=== PATIENT | male | born 1985 | race Caucasian/White ===

== ENCOUNTER 2016-10-24 06:15 | Emergency (ER) | payer OTHER ==
[~2016-10-24] VITALS: Ht 175.3 cm; Wt 113.8 kg
[~2016-10-24 06:15] MED LIST: ALBUTEROL SULF8.5 GM IH; AMLODIPINE BESYL5 MG PO; AMOXIL875 MG PO; ATORVASTATIN CA10 MG PO; BLOOD PRESSURE; CARVEDILOL12.5 MG PO; CLEOCIN300 MG PO; COREG25 M1 PO; CRESTOR; CRESTOR10 MG PO; DIABETIC; ELIQUIS2.5 MG PO; ELIQUIS5 MG PO; ENDOCET 5-3251 EACH PO; ERGOCALCIF50000 UNIT PO; FUROSEMIDE20 MG PO; HYCODAN SYRUP480 ML PO; JANUMET 50/51 TABLET PO; LANTUS (UNITS)1 UNIT SQ; LANTUS 10100 UNITS/ SC; LANTUS 3 M100 UNITS/ SC; LANTUS100 UNIT/2 SQ; LASIX40 MG PO; LEVEMIR100 UNIT/2 SC; LISINOPRIL20 MG PO; LISINOPRIL40 MG PO; LORCET 5-325 M1 EACH PO; METFORMIN; METFORMIN HCL1000 MG PO; NAPROSYN500 MG PO; NOVOLOG 10100 UNITS/ SC; OMEPRAZOLE40 M1 PO; PREDNISONE20 MG PO; TARKA PO
[2016-10-24] MEDS ORDERED: PEN-VEE K,VEET500 MG PO (06:55)
[2016-10-24] MEDS ORDERED: ULTRAM50 MG PO (06:55)
[2016-10-24 07:15] VITALS: BP 00/00
== END 2016-10-24 07:15 | disposition home or self-care (01) ==
LOC: EME 06:15
DX: K02.9 Dental caries, unspecified (principal); E11.9 Type 2 diabetes mellitus without complications; N18.9 Chronic kidney disease, unspecified; E78.5 Hyperlipidemia, unspecified; F17.200 Nicotine dependence, unspecified, uncomplicated
CPT/HCPCS: 99281; 99284

== ENCOUNTER 2016-12-23 21:09 | Inpatient (IN) | payer OTHER ==
[~2016-12-23] VITALS: Ht 175.3 cm; Wt 117.3 kg
[~2016-12-23 21:09] MED LIST changes: +PEN-VEE K,VEET500 MG PO; +ULTRAM50 MG PO
[2016-12-23 22:19] LABS: EOSINOPHIL (%) 2.3 % (0-5); EOSINOPHIL COUNT 0.2 K/uL (0-0.3); HEMATOCRIT 36.8 % (38.0-50.0); IMMATURE GRANULOCYTE (%) 0.4 % (0.0-0.7); INSTRUMENT ABS NEUTROPHIL CT 6.4 K/uL; LYMPHOCYTE COUNT 0.7 K/uL (1.0-2.8); MCH 28.8 PG (29.0-34.0); MCHC 33.2 G/DL (30.0-36.0); MEAN PLAT.VOLUME 9.9 uM^3 (9.0-12.4); MONOCYTE (%) 10.4 % (3-12); MONOCYTE COUNT 0.9 K/uL (0-0.8); NEUTROPHIL (%) 78.2 % (45-76); NEUTROPHIL COUNT 6.4 K/uL (1.8-6.4); PLATELET COUNT 207 K/uL (156-360); RBC DIS.WIDTH-SD 41.4 % (39-53); RED BLOOD COUNT 4.23 M/uL (4.00-5.50); WHITE BLOOD COUNT 8.2 K/uL (4.1-10.2)
[2016-12-23 22:30] LABS: CHLORIDE 109 mEq/L (99-109); POTASSIUM 5.2 mEq/L (3.7-5.4); SODIUM 139 mEq/L (136-147)
[2016-12-23 22:32] LABS: GLUCOSE 131 mg/dL (70-99)
[2016-12-23 22:33] LABS: ANION GAP 9 MEQ/L (2-14)
[2016-12-23 22:36] LABS: GFR ESTIMATE (CALCULATED) 35 mL/min/; UREA NITROGEN (BUN) 47 mg/dL (9-23)
[2016-12-24] MEDS ORDERED: ATORVASTATIN CA10 MG PO (00:29)
[2016-12-24] MEDS ORDERED: LISINOPRIL40 MG PO (00:29)
[2016-12-24] MEDS ORDERED: LANTUS 3 M100 UNITS1 SC (00:31)
[2016-12-24] MEDS ORDERED: NOVOLOG PE100 UNITS/ SC (00:32)
[2016-12-24 04:25] VITALS: BP 143/81
[2016-12-24 06:54] LABS: POINT-OF-CARE METER ID UU14188577
[2016-12-24 09:00] VITALS: BP 163/86
[2016-12-24 09:06] LABS: MCH 28.3 PG (29.0-34.0); MCHC 32.4 G/DL (30.0-36.0); MCV 87.3 FL (86-99); MEAN PLAT.VOLUME 10.5 uM^3 (9.0-12.4); PLATELET COUNT 178 K/uL (156-360); RBC DIS.WIDTH-CV 12.9 % (11.8-14.6); RBC DIS.WIDTH-SD 41.1 % (39-53); RED BLOOD COUNT 3.78 M/uL (4.00-5.50); WHITE BLOOD COUNT 6.4 K/uL (4.1-10.2)
[2016-12-24 09:24] LABS: ANION GAP 6 MEQ/L (2-14); CHLORIDE 108 MEQ/L (99-109); GFR ESTIMATE (CALCULATED) 37 mL/min/; GLUCOSE 135 mg/dL (70-99); POTASSIUM 4.9 MEQ/L (3.7-5.4); SAMPLE HEMOLYSIS CHECK 0; SAMPLE ICTERIC CHECK 0; SAMPLE LIPEMIA CHECK 0; SODIUM 138 MEQ/L (136-147); UREA NITROGEN (BUN) 44 mg/dL (9-23)
[2016-12-24 12:24] LABS: POINT-OF-CARE METER ID UU14188577
[2016-12-24 16:46] VITALS: BP 157/90
[2016-12-24 19:52] VITALS: BP 148/82
[2016-12-24 23:39] VITALS: BP 134/74
[2016-12-25 04:04] LABS: POINT-OF-CARE METER ID UU14188577
[2016-12-25 04:58] LABS: HEMATOCRIT 34.8 % (38.0-50.0); MCHC 31.9 G/DL (30.0-36.0); MCV 87.9 FL (86-99); MEAN PLAT.VOLUME 10.7 uM^3 (9.0-12.4); PLATELET COUNT 209 K/uL (156-360); RBC DIS.WIDTH-CV 12.6 % (11.8-14.6); RBC DIS.WIDTH-SD 40.8 % (39-53); RED BLOOD COUNT 3.96 M/uL (4.00-5.50); WHITE BLOOD COUNT 5.8 K/uL (4.1-10.2)
[2016-12-25 05:14] LABS: CHLORIDE 112 mEq/L (99-109); POTASSIUM 4.7 mEq/L (3.7-5.4); SODIUM 141 mEq/L (136-147)
[2016-12-25 05:17] LABS: ANION GAP 8 MEQ/L (2-14)
[2016-12-25 05:18] LABS: TOTAL BILIRUBIN 0.2 mg/dL (0.0-1.0)
[2016-12-25 05:19] LABS: ALKALINE PHOSPHATASE 55 IU/L (3-129)
[2016-12-25 05:21] LABS: UREA NITROGEN (BUN) 45 mg/dL (9-23)
[2016-12-25 05:25] LABS: GLUCOSE 69 mg/dL (70-99)
[2016-12-25 05:45] LABS: GFR ESTIMATE (CALCULATED) 37 mL/min/
[2016-12-25 07:07] VITALS: BP 152/84
[2016-12-25 11:10] VITALS: BP 157/85
[2016-12-25 12:03] LABS: POINT-OF-CARE METER ID UU14188577
[2016-12-25 14:20] LABS: C-REACTIVE PROTEIN 69.2 MG/L (0-10); PREALBUMIN 20.4 mg/dL (10-40)
[2016-12-25 15:51] VITALS: BP 175/89
[2016-12-25 21:00] LABS: ADD MIUA? YES; BILIRUBIN NEGATIVE; BLOOD SMALL; COLOR YELLOW ((YELLOW)); GLUCOSE (STRIP) 150; KETONES NEGATIVE; LEUKOCYTES NEGATIVE; NITRITE NEGATIVE; PROTEIN (STRIP) >=500; SPECIFIC GRAVITY 1.013 (1.000-1.030); UROBILINOGEN 0.2 MG/DL (0.2-1.0)
[2016-12-25 21:21] LABS: BACTERIA NONE SEEN /HPF; EPITHELIAL CELLS RARE /HPF; HYALINE CASTS 0-5 /LPF; MUCUS TRACE /LPF; RED BLOOD CELLS 15-20 /HPF (0-5); WHITE BLOOD CELLS 0-5 /HPF (0-5)
[2016-12-25 22:16] VITALS: BP 169/86
[2016-12-25 23:56] VITALS: BP 140/84
[2016-12-26 05:24] LABS: HEMATOCRIT 31.5 % (38.0-50.0); MCH 28.5 PG (29.0-34.0); MCV 86.3 FL (86-99); MEAN PLAT.VOLUME 10.8 uM^3 (9.0-12.4); PLATELET COUNT 186 K/uL (156-360); RBC DIS.WIDTH-CV 12.7 % (11.8-14.6); RED BLOOD COUNT 3.65 M/uL (4.00-5.50); WHITE BLOOD COUNT 6.9 K/uL (4.1-10.2)
[2016-12-26 05:58] LABS: ANION GAP 8 MEQ/L (2-14); CHLORIDE 112 MEQ/L (99-109); GFR ESTIMATE (CALCULATED) 37 mL/min/; GLUCOSE 64 mg/dL (70-99); POTASSIUM 4.8 MEQ/L (3.7-5.4); SAMPLE HEMOLYSIS CHECK 0; SAMPLE ICTERIC CHECK 0; SAMPLE LIPEMIA CHECK 0; SODIUM 142 MEQ/L (136-147); UREA NITROGEN (BUN) 41 mg/dL (9-23)
[2016-12-26 07:57] VITALS: BP 152/84
[2016-12-26 16:29] VITALS: BP 165/83
[2016-12-27 00:47] VITALS: BP 153/77
[2016-12-27 07:59] VITALS: BP 158/96
[2016-12-27 11:37] LABS: POINT-OF-CARE METER ID UU14188577
[2016-12-27] MEDS ORDERED: SILVER NITRATE1 EACH TP (12:18)
[2016-12-27 15:34] VITALS: BP 159/85
== END 2016-12-27 16:28 | disposition home health service (06) | DRG 982 ==
LOC: EME 21:09 → 3EAST 12-24 01:44 → EDOF 12-24 01:44 → 3EAST 12-24 03:34
PROVIDERS: Hospitalist; Internal Medicine; Physician Assistant; Surgery Plastic and Reconstructive Surgery
PROC: 0LBV0ZZ Excision of Right Foot Tendon, Open Approach (ICD-10-PCS; principal; 2016-12-26)
DX: E11.621 Type 2 diabetes mellitus with foot ulcer (principal); L97.419 Non-pressure chronic ulcer of right heel and midfoot with unspecified severity; L03.115 Cellulitis of right lower limb; L02.611 Cutaneous abscess of right foot; E11.69 Type 2 diabetes mellitus with other specified complication; E11.42 Type 2 diabetes mellitus with diabetic polyneuropathy; M86.9 Osteomyelitis, unspecified; N17.9 Acute kidney failure, unspecified; E11.21 Type 2 diabetes mellitus with diabetic nephropathy; E11.22 Type 2 diabetes mellitus with diabetic chronic kidney disease; N18.3 Chronic kidney disease, stage 3 (moderate); E11.65 Type 2 diabetes mellitus with hyperglycemia; E11.319 Type 2 diabetes mellitus with unspecified diabetic retinopathy without macular edema; I10 Essential (primary) hypertension; I25.10 Atherosclerotic heart disease of native coronary artery without angina pectoris; E78.5 Hyperlipidemia, unspecified; E55.9 Vitamin D deficiency, unspecified; F17.210 Nicotine dependence, cigarettes, uncomplicated; E66.9 Obesity, unspecified; Z88.1 Allergy status to other antibiotic agents; Z79.4 Long term (current) use of insulin; Z68.38 Body mass index [BMI] 38.0-38.9, adult; I25.2 Old myocardial infarction
CPT/HCPCS: 73630; 73700; 73720; 76881; 76937; 80048; 80053; 81003; 82948; 83605; 84134; 85025; 85027; 85651; 86140; 87040; 87070; 87075; 87076; 87086; 87205; 99281; 99285; A6260; J0690; J1644; J1815; J2270; J2543; J7030

== ENCOUNTER 2017-01-17 07:26 | Day surgery (SDC) | payer OTHER ==
[~2017-01-17] VITALS: Ht 175.3 cm; Wt 121.5 kg
[~2017-01-17 07:26] MED LIST changes: +CEFAZOLIN-2 GM/50 ML IV; +FLAGYL500 MG PO; +LANTUS 3 M100 UNITS1 SC; +NOVOLOG PE100 UNITS/ SC; +SILVER NITRATE1 EACH TP
[2017-01-17 08:54] LABS: POINT-OF-CARE METER ID UU14174212
[2017-01-17 09:05] LABS: CHLORIDE 111 mEq/L (99-109); POTASSIUM 4.9 mEq/L (3.7-5.4); SODIUM 142 mEq/L (136-147)
[2017-01-17 09:07] LABS: GLUCOSE 113 mg/dL (70-99)
[2017-01-17 09:08] LABS: ANION GAP 8 MEQ/L (2-14)
[2017-01-17 09:09] VITALS: BP 123/60
[2017-01-17 09:11] LABS: GFR ESTIMATE (CALCULATED) 44 mL/min/; UREA NITROGEN (BUN) 44 mg/dL (9-23)
[2017-01-17 13:36] LABS: POINT-OF-CARE METER ID UU13113675
[2017-01-17] MEDS ORDERED: NORCO 5/3251 TABLET PO (13:42)
[2017-01-17 14:35] VITALS: BP 159/101
[2017-01-17 15:35] VITALS: BP 153/96
== END 2017-01-17 15:35 | disposition home or self-care (01) ==
LOC: SDC 07:26
PROVIDERS: Surgery
PROC: 0QBN0ZZ Excision of Right Metatarsal, Open Approach (ICD-10-PCS; principal; 2017-01-17)
DX: M86.671 Other chronic osteomyelitis, right ankle and foot (principal); N28.9 Disorder of kidney and ureter, unspecified; E11.9 Type 2 diabetes mellitus without complications; I10 Essential (primary) hypertension; E78.4 Other hyperlipidemia; Z79.4 Long term (current) use of insulin; E66.9 Obesity, unspecified; Z68.39 Body mass index [BMI] 39.0-39.9, adult; F17.210 Nicotine dependence, cigarettes, uncomplicated; Z86.73 Personal history of transient ischemic attack (TIA), and cerebral infarction without residual deficits; Z83.3 Family history of diabetes mellitus
CPT/HCPCS: 80048; 82948; 87070; 87075; 87205; 88305; 88311; 93005; J2250; J2405; J3010; S0020

== ENCOUNTER 2017-02-06 15:34 | Inpatient (IN) | payer OTHER ==
[~2017-02-06] VITALS: Ht 175.3 cm; Wt 121.1 kg
[~2017-02-06 15:34] MED LIST changes: +NORCO 5/3251 TABLET PO
[2017-02-06 16:30] LABS: POINT-OF-CARE METER ID UU13113778
[2017-02-06 16:33] LABS: EOSINOPHIL (%) 0.6 % (0-5); EOSINOPHIL COUNT 0.1 K/uL (0-0.3); HEMATOCRIT 25.2 % (38.0-50.0); IMMATURE GRANULOCYTE (%) 1.1 % (0.0-0.7); IMMATURE GRANULOCYTE COUNT 0.2 K/uL; LYMPHOCYTE COUNT 0.5 K/uL (1.0-2.8); MCH 28.1 PG (29.0-34.0); MCHC 31.7 G/DL (30.0-36.0); MCV 88.4 FL (86-99); MEAN PLAT.VOLUME 9.6 uM^3 (9.0-12.4); MONOCYTE (%) 6.7 % (3-12); MONOCYTE COUNT 1.1 K/uL (0-0.8); NEUTROPHIL (%) 88.6 % (45-76); PLATELET COUNT 433 K/uL (156-360); RBC DIS.WIDTH-CV 13.8 % (11.8-14.6); RBC DIS.WIDTH-SD 44.6 % (39-53); RED BLOOD COUNT 2.85 M/uL (4.00-5.50); WHITE BLOOD COUNT 16.9 K/uL (4.1-10.2)
[2017-02-06 16:44] LABS: CHLORIDE 106 mEq/L (99-109); POTASSIUM 4.3 mEq/L (3.7-5.4); SODIUM 135 mEq/L (136-147)
[2017-02-06 16:46] LABS: GLUCOSE 110 mg/dL (70-99)
[2017-02-06 16:47] LABS: ANION GAP 14 MEQ/L (2-14)
[2017-02-06 16:50] LABS: GFR ESTIMATE (CALCULATED) 16 mL/min/; UREA NITROGEN (BUN) 94 mg/dL (9-23)
[2017-02-06] MEDS ORDERED: CARVEDILOL25 MG PO (18:23)
[2017-02-06] MEDS ORDERED: FUROSEMIDE80 MG PO (18:24)
[2017-02-06] MEDS ORDERED: LANTUS 3 M100 UNITS1 SC (18:25)
[2017-02-06] MEDS ORDERED: VENTOLIN HFA18 GM IH (18:25)
[2017-02-06] MEDS ORDERED: DOXYCYCLINE MO100 MG PO (18:26)
[2017-02-06 19:31] LABS: TOTAL BILIRUBIN 0.2 mg/dL (0.0-1.0)
[2017-02-06 19:32] LABS: ALKALINE PHOSPHATASE 688 IU/L (3-129)
[2017-02-06 19:34] LABS: DIRECT BILIRUBIN 0.2 mg/dL (0.0-0.3)
[2017-02-06 19:35] LABS: URIC ACID 10.4 mg/dL (3.1-9.2)
[2017-02-06 20:28] VITALS: BP 107/55
[2017-02-06 22:03] LABS: POINT-OF-CARE METER ID UU13113725
[2017-02-07] VITALS (8 sets, daily range): BP systolic 107–133; BP diastolic 52–63
[2017-02-07 06:22] LABS: POINT-OF-CARE METER ID UU13113725
[2017-02-07 07:12] LABS: HEMATOCRIT 23.5 % (38.0-50.0); MCH 28.7 PG (29.0-34.0); MCHC 31.9 G/DL (30.0-36.0); MEAN PLAT.VOLUME 10.3 uM^3 (9.0-12.4); PLATELET COUNT 421 K/uL (156-360); RBC DIS.WIDTH-CV 14.1 % (11.8-14.6); RBC DIS.WIDTH-SD 46.3 % (39-53); RED BLOOD COUNT 2.61 M/uL (4.00-5.50); WHITE BLOOD COUNT 15.9 K/uL (4.1-10.2)
[2017-02-07 07:44] LABS: Estimated Average Glucose 160 mg/dL (70-123); HEMOGLOBIN A1c (GLYCOHEMOGLOB) 7.2 % HGB (Below 5.7)
[2017-02-07 07:47] LABS: ALKALINE PHOSPHATASE 732 IU/L (3-129); ANION GAP 14 MEQ/L (2-14); CHLORIDE 107 MEQ/L (99-109); GFR ESTIMATE (CALCULATED) 16 mL/min/; GLUCOSE 61 mg/dL (70-99); POTASSIUM 4.5 MEQ/L (3.7-5.4); SAMPLE HEMOLYSIS CHECK 0; SAMPLE ICTERIC CHECK 0; SAMPLE LIPEMIA CHECK 0; SODIUM 134 MEQ/L (136-147); TOTAL BILIRUBIN 0.2 MG/DL (0.0-1.0); UREA NITROGEN (BUN) 93 mg/dL (9-23)
[2017-02-07 09:01] LABS: ADD MIUA? YES; BILIRUBIN NEGATIVE; BLOOD MODERATE; COLOR YELLOW ((YELLOW)); GLUCOSE (STRIP) 50; KETONES NEGATIVE; LEUKOCYTES NEGATIVE; NITRITE NEGATIVE; PROTEIN (STRIP) 100; SPECIFIC GRAVITY 1.015 (1.000-1.030); UROBILINOGEN 0.2 MG/DL (0.2-1.0)
[2017-02-07 09:20] LABS: POINT-OF-CARE METER ID UU13113725
[2017-02-07 09:22] LABS: BACTERIA RARE /HPF; BUDDING YEAST 1+; EPITHELIAL CELLS NONE SEEN /HPF; GRANULAR CASTS 0-5 /LPF; MUCUS NONE SEEN /LPF; RED BLOOD CELLS 0-5 /HPF (0-5); WHITE BLOOD CELLS 0-5 /HPF (0-5)
[2017-02-07 09:49] LABS: C DIFF TOXIN NEGATIVE (NEGATIVE)
[2017-02-07 10:01] LABS: PROBE CHECK PASS; SPECIMEN PROCESSING CONTROL PASS
[2017-02-07 10:31] LABS: IRON 11 MCG/DL (35-150); URIC ACID 9.9 mg/dL (3.1-9.2)
[2017-02-07 12:32] LABS: CARBON DIOXIDE (BICARBONATE) 14.7 MEQ/L (20-31)
[2017-02-07 17:15] LABS: POINT-OF-CARE METER ID UU13113675
[2017-02-08 00:05] VITALS: BP 110/59
[2017-02-08 07:01] LABS: EOSINOPHIL (%) 0.6 % (0-5); EOSINOPHIL COUNT 0.1 K/uL (0-0.3); HEMATOCRIT 24.7 % (38.0-50.0); IMMATURE GRANULOCYTE (%) 0.9 % (0.0-0.7); IMMATURE GRANULOCYTE COUNT 0.1 K/uL; INSTRUMENT ABS NEUTROPHIL CT 11.1 K/uL; LYMPHOCYTE COUNT 0.5 K/uL (1.0-2.8); MCH 28.4 PG (29.0-34.0); MCV 88.8 FL (86-99); MEAN PLAT.VOLUME 10.4 uM^3 (9.0-12.4); MONOCYTE (%) 6.9 % (3-12); MONOCYTE COUNT 0.9 K/uL (0-0.8); NEUTROPHIL (%) 87.8 % (45-76); NEUTROPHIL COUNT 11.1 K/uL (1.8-6.4); PLATELET COUNT 403 K/uL (156-360); RBC DIS.WIDTH-CV 14.5 % (11.8-14.6); RBC DIS.WIDTH-SD 47.3 % (39-53); RED BLOOD COUNT 2.78 M/uL (4.00-5.50); WHITE BLOOD COUNT 12.7 K/uL (4.1-10.2)
[2017-02-08 07:23] VITALS: BP 114/58
[2017-02-08 07:31] LABS: ANION GAP 13 MEQ/L (2-14); CHLORIDE 104 MEQ/L (99-109); GFR ESTIMATE (CALCULATED) 14 mL/min/; POTASSIUM 4.1 MEQ/L (3.7-5.4); SAMPLE HEMOLYSIS CHECK 0; SAMPLE ICTERIC CHECK 0; SAMPLE LIPEMIA CHECK 0; SODIUM 133 MEQ/L (136-147); UREA NITROGEN (BUN) 91 mg/dL (9-23)
[2017-02-08 07:32] LABS: GLUCOSE 213 mg/dL (70-99)
[2017-02-08 11:25] LABS: POINT-OF-CARE METER ID UU13113725
[2017-02-08 15:56] VITALS: BP 111/55
[2017-02-08 21:34] LABS: POINT-OF-CARE METER ID UU13113725
[2017-02-09 06:15] LABS: EOSINOPHIL (%) 1.5 % (0-5); EOSINOPHIL COUNT 0.2 K/uL (0-0.3); HEMATOCRIT 26.9 % (38.0-50.0); IMMATURE GRANULOCYTE (%) 0.7 % (0.0-0.7); IMMATURE GRANULOCYTE COUNT 0.1 K/uL; INSTRUMENT ABS NEUTROPHIL CT 9.2 K/uL; LYMPHOCYTE COUNT 0.6 K/uL (1.0-2.8); MCH 28.3 PG (29.0-34.0); MCV 88.5 FL (86-99); MEAN PLAT.VOLUME 10.1 uM^3 (9.0-12.4); MONOCYTE (%) 6.1 % (3-12); MONOCYTE COUNT 0.7 K/uL (0-0.8); NEUTROPHIL (%) 85.8 % (45-76); NEUTROPHIL COUNT 9.2 K/uL (1.8-6.4); PLATELET COUNT 443 K/uL (156-360); RBC DIS.WIDTH-CV 14.4 % (11.8-14.6); RBC DIS.WIDTH-SD 46.5 % (39-53); RED BLOOD COUNT 3.04 M/uL (4.00-5.50); WHITE BLOOD COUNT 10.7 K/uL (4.1-10.2)
[2017-02-09 07:00] LABS: ANION GAP 14 MEQ/L (2-14); CHLORIDE 106 MEQ/L (99-109); GFR ESTIMATE (CALCULATED) 14 mL/min/; POTASSIUM 4.4 MEQ/L (3.7-5.4); SAMPLE HEMOLYSIS CHECK 0; SAMPLE ICTERIC CHECK 0; SAMPLE LIPEMIA CHECK 0; SODIUM 137 MEQ/L (136-147); UREA NITROGEN (BUN) 94 mg/dL (9-23)
[2017-02-09 07:02] LABS: GLUCOSE 100 mg/dL (70-99)
[2017-02-09 07:06] VITALS: BP 117/60
[2017-02-09 16:08] VITALS: BP 136/68
[2017-02-09 22:59] VITALS: BP 130/63
[2017-02-10 05:47] LABS: POINT-OF-CARE METER ID UU13113725
[2017-02-10 07:01] LABS: EOSINOPHIL (%) 1.5 % (0-5); EOSINOPHIL COUNT 0.1 K/uL (0-0.3); HEMATOCRIT 25.1 % (38.0-50.0); IMMATURE GRANULOCYTE (%) 0.6 % (0.0-0.7); IMMATURE GRANULOCYTE COUNT 0.1 K/uL; INSTRUMENT ABS NEUTROPHIL CT 8.1 K/uL; LYMPHOCYTE COUNT 0.5 K/uL (1.0-2.8); MCH 28.6 PG (29.0-34.0); MCHC 32.3 G/DL (30.0-36.0); MCV 88.7 FL (86-99); MONOCYTE (%) 7.5 % (3-12); MONOCYTE COUNT 0.7 K/uL (0-0.8); NEUTROPHIL COUNT 8.1 K/uL (1.8-6.4); PLATELET COUNT 389 K/uL (156-360); RBC DIS.WIDTH-CV 14.2 % (11.8-14.6); RBC DIS.WIDTH-SD 46.3 % (39-53); RED BLOOD COUNT 2.83 M/uL (4.00-5.50); WHITE BLOOD COUNT 9.6 K/uL (4.1-10.2)
[2017-02-10 07:25] LABS: ANION GAP 13 MEQ/L (2-14); C-REACTIVE PROTEIN 108.4 MG/L (0-10); CHLORIDE 108 MEQ/L (99-109); GFR ESTIMATE (CALCULATED) 14 mL/min/; GLUCOSE 112 mg/dL (70-99); POTASSIUM 4.5 MEQ/L (3.7-5.4); SAMPLE HEMOLYSIS CHECK 0; SAMPLE ICTERIC CHECK 0; SAMPLE LIPEMIA CHECK 0; SODIUM 139 MEQ/L (136-147); UREA NITROGEN (BUN) 90 mg/dL (9-23)
[2017-02-10 07:30] LABS: ERTH.SED.RATE 56 MM/HR (0-15)
[2017-02-10 09:01] VITALS: BP 135/71
[2017-02-10 14:11] LABS: POINT-OF-CARE METER ID UU13113675; POINT-OF-CARE USER ID LABLCH83
[2017-02-10 17:03] LABS: POINT-OF-CARE METER ID UU13113725
[2017-02-10 17:23] VITALS: BP 147/80
[2017-02-10 20:10] VITALS: BP 141/73
[2017-02-10 20:49] LABS: POINT-OF-CARE METER ID UU13113725
[2017-02-10 23:11] VITALS: BP 133/69
[2017-02-11 02:59] VITALS: BP 138/74
[2017-02-11 07:05] LABS: HEMATOCRIT 26.4 % (38.0-50.0); MCH 27.9 PG (29.0-34.0); MCHC 31.4 G/DL (30.0-36.0); MCV 88.6 FL (86-99); MEAN PLAT.VOLUME 9.9 uM^3 (9.0-12.4); PLATELET COUNT 414 K/uL (156-360); RBC DIS.WIDTH-CV 13.9 % (11.8-14.6); RBC DIS.WIDTH-SD 45.1 % (39-53); RED BLOOD COUNT 2.98 M/uL (4.00-5.50); WHITE BLOOD COUNT 9.6 K/uL (4.1-10.2)
[2017-02-11 07:31] LABS: ANION GAP 11 MEQ/L (2-14); ANION GAP 12 MEQ/L (2-14); CHLORIDE 108 MEQ/L (99-109); GFR ESTIMATE (CALCULATED) 16 mL/min/; GFR ESTIMATE (CALCULATED) 17 mL/min/; GLUCOSE 141 mg/dL (70-99); GLUCOSE 144 mg/dL (70-99); POTASSIUM 4.5 MEQ/L (3.7-5.4); POTASSIUM 4.9 MEQ/L (3.7-5.4); SAMPLE HEMOLYSIS CHECK 0; SAMPLE ICTERIC CHECK 0; SAMPLE LIPEMIA CHECK 0; SODIUM 138 MEQ/L (136-147); UREA NITROGEN (BUN) 79 mg/dL (9-23); UREA NITROGEN (BUN) 82 mg/dL (9-23)
[2017-02-11 10:07] VITALS: BP 137/70
[2017-02-11 12:00] VITALS: BP 149/67
[2017-02-11 17:12] VITALS: BP 156/71
[2017-02-12] VITALS: BP 140/73
[2017-02-12 04:10] VITALS: BP 163/79
[2017-02-12 06:35] LABS: HEMATOCRIT 24.9 % (38.0-50.0); MCHC 31.7 G/DL (30.0-36.0); MCV 88.3 FL (86-99); MEAN PLAT.VOLUME 9.6 uM^3 (9.0-12.4); PLATELET COUNT 360 K/uL (156-360); RBC DIS.WIDTH-CV 13.8 % (11.8-14.6); RBC DIS.WIDTH-SD 44.1 % (39-53); RED BLOOD COUNT 2.82 M/uL (4.00-5.50); WHITE BLOOD COUNT 9.2 K/uL (4.1-10.2)
[2017-02-12 06:58] LABS: ANION GAP 10 MEQ/L (2-14); CHLORIDE 108 MEQ/L (99-109); GFR ESTIMATE (CALCULATED) 18 mL/min/; GFR ESTIMATE (CALCULATED) 19 mL/min/; GLUCOSE 147 mg/dL (70-99); GLUCOSE 148 mg/dL (70-99); MAGNESIUM 1.8 mg/dl (1.3-2.7); POTASSIUM 4.5 MEQ/L (3.7-5.4); SAMPLE HEMOLYSIS CHECK 0; SAMPLE ICTERIC CHECK 0; SAMPLE LIPEMIA CHECK 0; SODIUM 138 MEQ/L (136-147); UREA NITROGEN (BUN) 70 mg/dL (9-23); UREA NITROGEN (BUN) 71 mg/dL (9-23)
[2017-02-12 07:02] VITALS: BP 128/66
[2017-02-12 16:07] VITALS: BP 119/59
[2017-02-12 18:59] LABS: POINT-OF-CARE METER ID UU13113675; POINT-OF-CARE USER ID 515036437
[2017-02-12 21:00] VITALS: BP 139/73
[2017-02-13 01:00] VITALS: BP 132/65
[2017-02-13 04:18] VITALS: BP 123/69
[2017-02-13 07:19] VITALS: BP 129/70
[2017-02-13 07:41] LABS: ANION GAP 11 MEQ/L (2-14); CHLORIDE 109 MEQ/L (99-109); GFR ESTIMATE (CALCULATED) 22 mL/min/; GLUCOSE 74 mg/dL (70-99); POTASSIUM 4.2 MEQ/L (3.7-5.4); SAMPLE HEMOLYSIS CHECK 0; SAMPLE ICTERIC CHECK 0; SAMPLE LIPEMIA CHECK 0; SODIUM 140 MEQ/L (136-147); UREA NITROGEN (BUN) 63 mg/dL (9-23)
[2017-02-13 11:15] VITALS: BP 144/71
[2017-02-13 16:25] VITALS: BP 158/74
[2017-02-13 20:02] VITALS: BP 138/74
[2017-02-14 00:12] VITALS: BP 142/71
[2017-02-14 04:16] VITALS: BP 129/63
[2017-02-14 06:41] VITALS: BP 131/65
[2017-02-14 07:02] LABS: ANION GAP 10 MEQ/L (2-14); CHLORIDE 108 MEQ/L (99-109); GFR ESTIMATE (CALCULATED) 23 mL/min/; GLUCOSE 89 mg/dL (70-99); POTASSIUM 4.5 MEQ/L (3.7-5.4); SAMPLE HEMOLYSIS CHECK 0; SAMPLE ICTERIC CHECK 0; SAMPLE LIPEMIA CHECK 0; SODIUM 140 MEQ/L (136-147); UREA NITROGEN (BUN) 57 mg/dL (9-23)
[2017-02-14 11:16] VITALS: BP 137/66
[2017-02-14 11:33] LABS: POINT-OF-CARE METER ID UU13113725
[2017-02-14 15:55] VITALS: BP 148/71
[2017-02-14 16:32] LABS: POINT-OF-CARE METER ID UU13113725
[2017-02-14 19:25] VITALS: BP 154/74
[2017-02-14 23:28] LABS: POINT-OF-CARE METER ID UU13113675
[2017-02-15] VITALS (13 sets, daily range): BP systolic 122–146; BP diastolic 59–80
[2017-02-15 06:22] LABS: POINT-OF-CARE METER ID UU13113725
[2017-02-15 06:48] LABS: EOSINOPHIL (%) 1.2 % (0-5); EOSINOPHIL COUNT 0.1 K/uL (0-0.3); HEMATOCRIT 23.4 % (38.0-50.0); IMMATURE GRANULOCYTE (%) 0.7 % (0.0-0.7); IMMATURE GRANULOCYTE COUNT 0.1 K/uL; INSTRUMENT ABS NEUTROPHIL CT 9.5 K/uL; LYMPHOCYTE COUNT 0.6 K/uL (1.0-2.8); MCH 27.4 PG (29.0-34.0); MCHC 30.3 G/DL (30.0-36.0); MCV 90.3 FL (86-99); MONOCYTE (%) 5.3 % (3-12); MONOCYTE COUNT 0.6 K/uL (0-0.8); NEUTROPHIL (%) 86.9 % (45-76); NEUTROPHIL COUNT 9.5 K/uL (1.8-6.4); PLATELET COUNT 343 K/uL (156-360); RBC DIS.WIDTH-CV 13.8 % (11.8-14.6); RBC DIS.WIDTH-SD 45.6 % (39-53); RED BLOOD COUNT 2.59 M/uL (4.00-5.50); WHITE BLOOD COUNT 10.9 K/uL (4.1-10.2)
[2017-02-15 07:20] LABS: ANION GAP 9 MEQ/L (2-14); CHLORIDE 107 MEQ/L (99-109); GFR ESTIMATE (CALCULATED) 25 mL/min/; POTASSIUM 5.1 MEQ/L (3.7-5.4); SAMPLE HEMOLYSIS CHECK 0; SAMPLE ICTERIC CHECK 0; SAMPLE LIPEMIA CHECK 0; SODIUM 137 MEQ/L (136-147); UREA NITROGEN (BUN) 48 mg/dL (9-23)
[2017-02-15 07:21] LABS: ANION GAP 10 MEQ/L (2-14); CHLORIDE 107 MEQ/L (99-109); GFR ESTIMATE (CALCULATED) 26 mL/min/; POTASSIUM 5.1 MEQ/L (3.7-5.4); SAMPLE HEMOLYSIS CHECK 0; SAMPLE ICTERIC CHECK 0; SAMPLE LIPEMIA CHECK 0; SODIUM 138 MEQ/L (136-147); UREA NITROGEN (BUN) 52 mg/dL (9-23)
[2017-02-15 07:24] LABS: GLUCOSE 198 mg/dL (70-99); GLUCOSE 202 mg/dL (70-99)
[2017-02-15 12:01] LABS: POINT-OF-CARE METER ID UU13113725
[2017-02-15 15:58] LABS: POINT-OF-CARE METER ID UU13113725
[2017-02-16] VITALS (15 sets, daily range): BP systolic 133–151; BP diastolic 64–84
[2017-02-16 06:24] LABS: POINT-OF-CARE METER ID UU13113725
[2017-02-16 06:52] LABS: HEMATOCRIT 24.3 % (38.0-50.0); MCH 28.4 PG (29.0-34.0); MCHC 31.7 G/DL (30.0-36.0); MCV 89.7 FL (86-99); MEAN PLAT.VOLUME 10.2 uM^3 (9.0-12.4); PLATELET COUNT 303 K/uL (156-360); RBC DIS.WIDTH-CV 14.2 % (11.8-14.6); RED BLOOD COUNT 2.71 M/uL (4.00-5.50); WHITE BLOOD COUNT 8.1 K/uL (4.1-10.2)
[2017-02-16 07:19] LABS: ANION GAP 9 MEQ/L (2-14); CHLORIDE 110 MEQ/L (99-109); GFR ESTIMATE (CALCULATED) 26 mL/min/; GLUCOSE 123 mg/dL (70-99); POTASSIUM 4.7 MEQ/L (3.7-5.4); SAMPLE HEMOLYSIS CHECK 0; SAMPLE ICTERIC CHECK 0; SAMPLE LIPEMIA CHECK 0; SODIUM 140 MEQ/L (136-147); UREA NITROGEN (BUN) 50 mg/dL (9-23)
[2017-02-16] MEDS ORDERED: ENDOCET 5-3251 EACH PO (11:21)
[2017-02-16 11:37] LABS: POINT-OF-CARE METER ID UU13113725
[2017-02-17 06:45] VITALS: BP 139/76
[2017-02-17 07:27] LABS: POINT-OF-CARE METER ID UU13113725
[2017-02-17 07:27] LABS: POINT-OF-CARE METER ID UU13113725
[2017-02-17 11:09] LABS: EOSINOPHIL (%) 0.2 % (0-5); HEMATOCRIT 31.1 % (38.0-50.0); IMMATURE GRANULOCYTE (%) 0.8 % (0.0-0.7); IMMATURE GRANULOCYTE COUNT 0.1 K/uL; INSTRUMENT ABS NEUTROPHIL CT 8.4 K/uL; LYMPHOCYTE COUNT 0.4 K/uL (1.0-2.8); MCH 28.1 PG (29.0-34.0); MCHC 31.5 G/DL (30.0-36.0); MCV 89.1 FL (86-99); MEAN PLAT.VOLUME 9.9 uM^3 (9.0-12.4); MONOCYTE (%) 6.2 % (3-12); MONOCYTE COUNT 0.6 K/uL (0-0.8); NEUTROPHIL (%) 88.3 % (45-76); NEUTROPHIL COUNT 8.4 K/uL (1.8-6.4); PLATELET COUNT 313 K/uL (156-360); RBC DIS.WIDTH-SD 45.6 % (39-53); WHITE BLOOD COUNT 9.6 K/uL (4.1-10.2)
[2017-02-17 11:10] LABS: RED BLOOD COUNT 3.49 M/uL (4.00-5.50)
[2017-02-17 11:32] LABS: POINT-OF-CARE METER ID UU13113725
== END 2017-02-17 11:31 | DRG 853 ==
LOC: EME 15:34 → EDOF 17:05 → 5EAST 17:05
PROVIDERS: Hospitalist; Internal Medicine; Internal Medicine Infectious Disease; Internal Medicine Nephrology; Physician Assistant; Surgery; Thoracic Surgery (Cardiothoracic Vascular Surgery)
PROC: 0S9M0ZZ Drainage of Right Metatarsal-Phalangeal Joint, Open Approach (ICD-10-PCS; 2017-02-08)
PROC: 0QTN0ZZ Resection of Right Metatarsal, Open Approach (ICD-10-PCS; 2017-02-08)
PROC: 0JBQ0ZZ Excision of Right Foot Subcutaneous Tissue and Fascia, Open Approach (ICD-10-PCS; 2017-02-10)
PROC: 0LBS0ZZ Excision of Right Ankle Tendon, Open Approach (ICD-10-PCS; 2017-02-12)
PROC: 0Y6H0Z3 Detachment at Right Lower Leg, Low, Open Approach (ICD-10-PCS; principal; 2017-02-15)
DX: A41.9 Sepsis, unspecified organism (principal); N17.0 Acute kidney failure with tubular necrosis; L03.115 Cellulitis of right lower limb; L02.611 Cutaneous abscess of right foot; M86.171 Other acute osteomyelitis, right ankle and foot; M86.671 Other chronic osteomyelitis, right ankle and foot; D62 Acute posthemorrhagic anemia; K52.1 Toxic gastroenteritis and colitis; N18.3 Chronic kidney disease, stage 3 (moderate); N25.81 Secondary hyperparathyroidism of renal origin; B96.89 Other specified bacterial agents as the cause of diseases classified elsewhere; D63.1 Anemia in chronic kidney disease; E10.21 Type 1 diabetes mellitus with diabetic nephropathy; E10.22 Type 1 diabetes mellitus with diabetic chronic kidney disease; E10.42 Type 1 diabetes mellitus with diabetic polyneuropathy; E10.621 Type 1 diabetes mellitus with foot ulcer; E55.9 Vitamin D deficiency, unspecified; E78.5 Hyperlipidemia, unspecified; E83.39 Other disorders of phosphorus metabolism; E86.0 Dehydration; F17.210 Nicotine dependence, cigarettes, uncomplicated; Z79.4 Long term (current) use of insulin; I12.9 Hypertensive chronic kidney disease with stage 1 through stage 4 chronic kidney disease, or unspecified chronic kidney disease; K76.0 Fatty (change of) liver, not elsewhere classified; L97.519 Non-pressure chronic ulcer of other part of right foot with unspecified severity; T81.89XA Other complications of procedures, not elsewhere classified, initial encounter; M21.379 Foot drop, unspecified foot; M72.8 Other fibroblastic disorders; T36.95XA Adverse effect of unspecified systemic antibiotic, initial encounter; Z87.441 Personal history of nephrotic syndrome; Z83.3 Family history of diabetes mellitus; Z82.49 Family history of ischemic heart disease and other diseases of the circulatory system; Z80.9 Family history of malignant neoplasm, unspecified
CPT/HCPCS: 71010; 73630; 74176; 80048; 80048 91; 80053; 80069; 80076; 81003; 82436; 82803; 82948; 83036; 83540; 83605; 83735; 83930; 83935; 84133; 84300; 84466; 84550; 85025; 85025 91; 85027; 85651; 86140; 86900; 86901; 86920; 87040; 87070; 87075; 87076; 87205; 87493; 88305; 88307; 88311; 89190; 93970; 97530 GO; 97530 GP; 99202; 99281; 99285; J0131; J0330; J0690; J0881; J1100; J1170; J1644; J1756; J1815; J1940; J2250; J2274; J2405; J2543; J3010; J7030; J7040; J7050; J7070; P9016; P9047; S0028

== ENCOUNTER 2017-02-17 10:01 | Inpatient (IN) | payer OTHER ==
[~2017-02-17] VITALS: Ht 175.3 cm; Wt 116.1 kg
[~2017-02-17 10:01] MED LIST changes: +CARVEDILOL25 MG PO; +DOXYCYCLINE MO100 MG PO; +FUROSEMIDE80 MG PO; +VENTOLIN HFA18 GM IH
[2017-02-17 11:40] VITALS: BP 155/76
[2017-02-17 15:46] VITALS: BP 147/67
[2017-02-17 17:24] LABS: POINT-OF-CARE METER ID UU14174215
[2017-02-17 20:54] LABS: POINT-OF-CARE METER ID UU13113720
[2017-02-17 23:00] VITALS: BP 150/73
[2017-02-18 05:35] VITALS: BP 142/74
[2017-02-18 06:07] LABS: HEMATOCRIT 29.4 % (38.0-50.0); MCHC 32.3 G/DL (30.0-36.0); MCV 89.6 FL (86-99); MEAN PLAT.VOLUME 9.7 uM^3 (9.0-12.4); PLATELET COUNT 319 K/uL (156-360); RBC DIS.WIDTH-SD 45.9 % (39-53); RED BLOOD COUNT 3.28 M/uL (4.00-5.50); WHITE BLOOD COUNT 6.2 K/uL (4.1-10.2)
[2017-02-18 07:05] LABS: ALKALINE PHOSPHATASE 205 IU/L (3-129); ANION GAP 9 MEQ/L (2-14); CHLORIDE 110 MEQ/L (99-109); GFR ESTIMATE (CALCULATED) 28 mL/min/; POTASSIUM 4.6 MEQ/L (3.7-5.4); SAMPLE HEMOLYSIS CHECK 0; SAMPLE ICTERIC CHECK 0; SAMPLE LIPEMIA CHECK 0; SODIUM 142 MEQ/L (136-147); TOTAL BILIRUBIN 0.2 MG/DL (0.0-1.0); UREA NITROGEN (BUN) 49 mg/dL (9-23)
[2017-02-18 07:06] LABS: GLUCOSE 75 mg/dL (70-99)
[2017-02-18 07:42] LABS: POINT-OF-CARE METER ID UU13113720
[2017-02-18 11:29] LABS: POINT-OF-CARE METER ID UU13113720
[2017-02-18 15:19] VITALS: BP 159/74
[2017-02-18 16:32] LABS: POINT-OF-CARE METER ID UU13113720
[2017-02-18 21:11] LABS: POINT-OF-CARE METER ID UU13113720
[2017-02-19 05:00] VITALS: BP 147/74
[2017-02-19 07:09] LABS: ANION GAP 10 MEQ/L (2-14); CHLORIDE 109 MEQ/L (99-109); GFR ESTIMATE (CALCULATED) 29 mL/min/; POTASSIUM 4.6 MEQ/L (3.7-5.4); SAMPLE HEMOLYSIS CHECK 0; SAMPLE ICTERIC CHECK 0; SAMPLE LIPEMIA CHECK 0; SODIUM 142 MEQ/L (136-147); UREA NITROGEN (BUN) 52 mg/dL (9-23)
[2017-02-19 07:10] LABS: GLUCOSE 96 mg/dL (70-99)
[2017-02-19 07:39] LABS: POINT-OF-CARE METER ID UU14174215
[2017-02-19 12:08] LABS: POINT-OF-CARE METER ID UU14174215
[2017-02-19 15:00] VITALS: BP 146/70
[2017-02-19 16:58] LABS: POINT-OF-CARE METER ID UU13113720
[2017-02-19 21:24] LABS: POINT-OF-CARE METER ID UU13113720
[2017-02-20 04:13] LABS: POINT-OF-CARE METER ID UU14174215
[2017-02-20 04:39] LABS: POINT-OF-CARE METER ID UU13113720
[2017-02-20 06:05] VITALS: BP 158/83
[2017-02-20 06:29] LABS: POINT-OF-CARE METER ID UU14174215; POINT-OF-CARE USER ID ENVGAF
[2017-02-20 07:25] LABS: ANION GAP 9 MEQ/L (2-14); CHLORIDE 108 MEQ/L (99-109); GFR ESTIMATE (CALCULATED) 32 mL/min/; GLUCOSE 100 mg/dL (70-99); POTASSIUM 4.6 MEQ/L (3.7-5.4); SAMPLE HEMOLYSIS CHECK 0; SAMPLE ICTERIC CHECK 0; SAMPLE LIPEMIA CHECK 0; SODIUM 139 MEQ/L (136-147); UREA NITROGEN (BUN) 49 mg/dL (9-23)
[2017-02-20 11:31] LABS: POINT-OF-CARE METER ID UU14174215; POINT-OF-CARE USER ID AHSSSJB31
[2017-02-20 15:44] VITALS: BP 168/79
[2017-02-20 16:55] LABS: POINT-OF-CARE METER ID UU14174215
[2017-02-20 21:28] LABS: POINT-OF-CARE METER ID UU13113720
[2017-02-21 04:57] VITALS: BP 160/83
[2017-02-21 06:35] LABS: POINT-OF-CARE METER ID UU13113720; POINT-OF-CARE USER ID ENVGAF
[2017-02-21 07:22] LABS: ANION GAP 8 MEQ/L (2-14); CHLORIDE 108 MEQ/L (99-109); GFR ESTIMATE (CALCULATED) 33 mL/min/; POTASSIUM 4.6 MEQ/L (3.7-5.4); SAMPLE HEMOLYSIS CHECK 0; SAMPLE ICTERIC CHECK 0; SAMPLE LIPEMIA CHECK 0; SODIUM 141 MEQ/L (136-147); UREA NITROGEN (BUN) 46 mg/dL (9-23)
[2017-02-21 07:28] LABS: GLUCOSE 62 mg/dL (70-99)
[2017-02-21 11:26] LABS: POINT-OF-CARE METER ID UU13113720
[2017-02-21 16:05] LABS: POINT-OF-CARE METER ID UU13113720
[2017-02-21 16:15] VITALS: BP 159/83
[2017-02-21 20:14] LABS: POINT-OF-CARE METER ID UU13113720
[2017-02-22 03:50] VITALS: BP 148/80
[2017-02-22 07:34] LABS: POINT-OF-CARE METER ID UU13113720; POINT-OF-CARE USER ID AHSSSJB31
[2017-02-22] MEDS ORDERED: HYDROCHLOROTHIA25 MG PO (07:54)
[2017-02-22] MEDS ORDERED: AMLODIPINE BESY10 MG PO (07:54)
[2017-02-22] MEDS ORDERED: LISINOPRIL40 MG PO (07:54)
[2017-02-22] MEDS ORDERED: THERAGRAN1 TABLET PO (07:54)
[2017-02-22] MEDS ORDERED: ERGOCALCIF50000 UNIT PO (07:54)
[2017-02-22] MEDS ORDERED: CARVEDILOL25 MG PO (07:54)
[2017-02-22] MEDS ORDERED: FERROUS SULFAT325 MG PO (07:54)
[2017-02-22] MEDS ORDERED: ATORVASTATIN CA10 MG PO (07:54)
[2017-02-22] MEDS ORDERED: FUROSEMIDE80 MG PO (07:54)
[2017-02-22] MEDS ORDERED: FAMOTIDINE20 MG PO (07:54)
[2017-02-22] MEDS ORDERED: LEVEMIR100 UNIT/2 SC (07:54)
== END 2017-02-22 10:56 | DRG 560 ==
LOC: 3WEST 10:01
PROVIDERS: Internal Medicine; Physical Medicine & Rehabilitation Pain Medicine
PROC: F07M0ZZ Range of Motion and Joint Mobility Treatment of Musculoskeletal System - Whole Body (ICD-10-PCS; principal; 2017-02-17)
DX: Z47.81 Encounter for orthopedic aftercare following surgical amputation (principal); R53.1 Weakness; D50.9 Iron deficiency anemia, unspecified; D62 Acute posthemorrhagic anemia; N17.9 Acute kidney failure, unspecified; R26.2 Difficulty in walking, not elsewhere classified; N18.4 Chronic kidney disease, stage 4 (severe); I12.9 Hypertensive chronic kidney disease with stage 1 through stage 4 chronic kidney disease, or unspecified chronic kidney disease; E11.21 Type 2 diabetes mellitus with diabetic nephropathy; E11.22 Type 2 diabetes mellitus with diabetic chronic kidney disease; G54.6 Phantom limb syndrome with pain; E78.00 Pure hypercholesterolemia, unspecified; E83.39 Other disorders of phosphorus metabolism; E87.2 Acidosis; I51.7 Cardiomegaly; R00.0 Tachycardia, unspecified; K80.20 Calculus of gallbladder without cholecystitis without obstruction; N04.9 Nephrotic syndrome with unspecified morphologic changes; G89.18 Other acute postprocedural pain; Z87.891 Personal history of nicotine dependence; Z89.511 Acquired absence of right leg below knee; Z56.0 Unemployment, unspecified; Z79.4 Long term (current) use of insulin; Z80.9 Family history of malignant neoplasm, unspecified; Z83.3 Family history of diabetes mellitus
CPT/HCPCS: 80048; 80053; 80069; 82948; 84100; 85027; 97110 GO; 97530 GP; 99202; J1650